=== PATIENT | male | born 1990 | race Two or more races ===

== ENCOUNTER 2016-07-20 13:37 | Emergency (ER) | payer SELFPAY ==
[~2016-07-20] VITALS: Ht 172.7 cm; Wt 79.4 kg
[2016-07-20] MEDS ORDERED: IBUPROFEN 600 MG TABLET PO ONE ×2 (14:00→14:01)
[2016-07-20 14:54] VITALS: BP 127/94
== END 2016-07-20 14:56 | disposition home or self-care (01) ==
LOC: ER 13:39 → EDBD 13:39 → ER 14:56
DX: R55 Syncope and collapse (principal)
CPT/HCPCS: 93005; 99283; A4606 ×2; Z7610 ×2